=== PATIENT | male | born 1975 | race Caucasian/White ===

== ENCOUNTER 2020-08-24 22:41 | Observation (INO) ==
[2020-08-24 23:11] LABS: Basophils % 0.5 %; Hematocrit 37.8 % (37.5-50.1); Hemoglobin 11.8 g/dL (12.9-16.9); Immature Granulocytes % 0.2 % (0-4); Lymphocytes # 1.2 K/mcL (0.6-4.6); Lymphocytes % 27.6 %; Mean Corpuscular HGB Conc 31.2 g/dL (31.6-35.5); Mean Corpuscular Hemoglobin 28.4 pg (28.0-33.3); Mean Corpuscular Volume 90.9 fL (83.0-100.0); Mean Platelet Volume 9.7 fL (9.4-12.4); Monocytes # 0.5 K/mcL (0.0-1.3); Monocytes % 11.1 %; Neutrophils # 2.5 K/mcL (1.6-8.9); Platelet Count 258 K/mcL (140-400); Red Blood Count 4.16 M/mcL (4.19-5.50); Segmented Neutrophils % 60.6 %; White Blood Count 4.2 K/mcL (4.3-11.1)
[2020-08-24 23:32] LABS: Calcium 8.6 mg/dL (8.6-10.3); Potassium 3.3 mEq/L (3.5-5.1)
[2020-08-24 23:35] LABS: Troponin I 0.06 ng/mL (< 0.04)
[2020-08-24] MEDS ORDERED: Isovue-370 500 ML BOTTLE IVP ONE ×2 (23:39→23:43)
[2020-08-24] MEDS ORDERED: 0.9 % Sodium Chloride 1,000 ML IVC ONE (23:45)
[2020-08-25] MEDS ORDERED: Naloxone 0.4 MG/ML INJ IVP PRN (01:50)
[2020-08-25] MEDS ORDERED: 0.9 % Sodium Chloride 1,000 ML IVC ONE (05:18)
[2020-08-25] MEDS ORDERED: Perflutren Lipid Microsphere 1.3 ML in 0.9 % Sodium Chloride 8.7 ML IVP PRN (05:22)
[2020-08-25 05:46] LABS: Hematocrit 36.6 % (37.5-50.1); Hemoglobin 11.3 g/dL (12.9-16.9); Mean Corpuscular HGB Conc 30.9 g/dL (31.6-35.5); Mean Corpuscular Hemoglobin 28.6 pg (28.0-33.3); Mean Corpuscular Volume 92.7 fL (83.0-100.0); Mean Platelet Volume 9.8 fL (9.4-12.4); Platelet Count 243 K/mcL (140-400); Red Blood Count 3.95 M/mcL (4.19-5.50)
[2020-08-25 06:17] LABS: Calcium 8.8 mg/dL (8.6-10.3); Magnesium 1.8 mg/dL (1.6-2.6); Phosphorous 4.1 mg/dL (2.7-4.5); Potassium 4.6 mEq/L (3.5-5.1); Troponin I 0.05 ng/mL (< 0.04)
[2020-08-25 09:30] LABS: Bilirubin,Urine Negative (Negative); Blood,Urine Negative (Negative); Clarity,Urine Clear (Clear); Color,Urine Light-Yellow (Yellow); Glucose,Urine (UA) Normal (Normal); Ketones,Urine Negative (Negative); Leukocyte Esterase,Urine Negative (Negative); Nitrite,Urine Negative (Negative); Protein,Urine Negative (Neg-Trace); Specific Gravity,Urine > 1.030 (1.010-1.025); Urobilinogen,Urine Normal (Normal)
[2020-08-25] MEDS: 0.9 % Sodium Chloride 1,000 ML IVC SCH ×2 (13:10→22:08)
[2020-08-25] MEDS: tiZANidine 4 MG TABLET PO SCH (22:07)
[2020-08-26] MEDS ORDERED: Regadenoson 0.4 MG/5 ML SYRINGE IVP ONE (05:50)
[2020-08-26 06:56] LABS: BUN/Creatinine Ratio 17 (6-26); Blood Urea Nitrogen 21 mg/dL (6-20); Calcium 8.5 mg/dL (8.6-10.3); Carbon Dioxide 25 mEq/L (23-29); Chloride 106 mEq/L (98-107); Glucose 88 mg/dL (70-105); Osmolality,Calculated 288 (280-300); Potassium 3.8 mEq/L (3.5-5.1); Sodium 138 mEq/L (136-145); eGFR For African Americans > 60 (> 60); eGFR For Non-African Americans > 60 (> 60)
[2020-08-26] MEDS: tiZANidine 4 MG TABLET PO SCH (20:36)
[2020-08-27 01:14] LABS: Adenovirus Not Detected (Not Detect); Coronavirus 229E Not Detected (Not Detect); Coronavirus HKU1 Not Detected (Not Detect); Coronavirus NL63 Not Detected (Not Detect); Coronavirus OC43 Not Detected (Not Detect)
[2020-08-27 01:15] LABS: Bordetella Pertussis Not Detected (Not Detect); Chlamydophila pneumoniae Not Detected (Not Detect); Human Metapneumovirus Not Detected (Not Detect); Human Rhinovirus/Enterovirus Not Detected (Not Detect); Influenza A Subtype 2009 H1 Not Detected (Not Detect); Influenza B Not Detected (Not Detect); Mycoplasma pneumoniae Not Detected (Not Detect); Parainfluenza Virus 1 Not Detected (Not Detect); Parainfluenza Virus 2 Not Detected (Not Detect); Parainfluenza Virus 3 Not Detected (Not Detect); Parainfluenza Virus 4 Not Detected (Not Detect); Respiratory Syncytial Virus Not Detected (Not Detect); SARS-CoV-2 DETECTED (Not Detect)
[2020-08-27] MEDS ORDERED: Naloxone 0.4 MG/ML INJ IVP PRN (03:38)
[2020-08-27] MEDS ORDERED: Benzonatate 100 MG CAPSULE PO PRN (07:51)
[2020-08-27] MEDS ORDERED: Ipratropium 1 PUFF INHALER IH PRN (07:51)
[2020-08-27 09:35] LABS: Basophils % 0.5 %; Eosinophils # 0.1 K/mcL (0.0-0.6); Eosinophils % 1.8 %; Hematocrit 39.8 % (37.5-50.1); Hemoglobin 12.6 g/dL (12.9-16.9); Immature Granulocytes % 0.2 % (0-4); Lymphocytes # 1.6 K/mcL (0.6-4.6); Lymphocytes % 35.1 %; Mean Corpuscular HGB Conc 31.7 g/dL (31.6-35.5); Mean Corpuscular Hemoglobin 28.6 pg (28.0-33.3); Mean Corpuscular Volume 90.5 fL (83.0-100.0); Mean Platelet Volume 9.6 fL (9.4-12.4); Monocytes # 0.4 K/mcL (0.0-1.3); Monocytes % 9.2 %; Neutrophils # 2.4 K/mcL (1.6-8.9); Platelet Count 240 K/mcL (140-400); Red Cell Distribution Width 13.7 % (11.5-14.5); Segmented Neutrophils % 53.2 %; White Blood Count 4.4 K/mcL (4.3-11.1)
[2020-08-27 09:38] LABS: Estimated Average Glucose 117 mg/dl
[2020-08-27 09:57] LABS: Chol/HDL Ratio 4.3 (0-4.9)
[2020-08-27 10:03] LABS: C-Reactive Protein 5 mg/L (Less than 10); Lactate Dehydrogenase 118 Units/L (140-271)
[2020-08-27 10:15] LABS: Ferritin 278 ng/mL (20-250)
[2020-08-27 11:24] VITALS: BP 123/80
[2020-08-27] MEDS ORDERED: Aspirin 81 MG TAB.CHEW PO SCH (14:00)
[2020-08-27] MEDS ORDERED: tiZANidine 4 MG TABLET PO SCH (21:00)
== END 2020-08-27 17:13 | disposition home or self-care (01) ==
LOC: EMEROOARM 22:41 → 3BNU 22:41 → SUATTDRO 08-25 01:17 → 3BNU 08-25 01:47 → 2NENU 08-27 01:32
PROVIDERS: ADMIT Internal Medicine; ATTEND Internal Medicine